=== PATIENT | male | born 1980 | race Caucasian/White ===

== ENCOUNTER 2021-06-10 17:46 | Inpatient (IN) ==
[2021-06-10] MEDS: 0.9 % Sodium Chloride 1,000 ML IVC SCH ×2 (18:58→21:37)
[2021-06-10 18:59] LABS: VBG HCO3 26 mEq/L (21-27); VBG PCO2 37 mmHg (41-51); VBG PH 7.45 pH Units (7.32-7.42); VBG PO2 146 mmHg (25-50)
[2021-06-10 19:01] LABS: Basophils # 0.1 K/mcL (0.0-0.2); Eosinophils # 0.1 K/mcL (0.0-0.6); Hematocrit 46.3 % (37.5-50.1); Hemoglobin 16.6 g/dL (12.9-16.9); Immature Granulocytes % 0.7 % (0-4); Lymphocytes # 1.7 K/mcL (0.6-4.6); Lymphocytes % 28.5 %; Mean Corpuscular HGB Conc 35.9 g/dL (31.6-35.5); Mean Corpuscular Hemoglobin 30.9 pg (28.0-33.3); Mean Corpuscular Volume 86.1 fL (83.0-100.0); Mean Platelet Volume 11.1 fL (9.4-12.4); Monocytes # 0.6 K/mcL (0.0-1.3); Monocytes % 9.7 %; Neutrophils # 3.4 K/mcL (1.6-8.9); Platelet Count 304 K/mcL (140-400); Red Blood Count 5.38 M/mcL (4.19-5.50); Red Cell Distribution Width 12.9 % (11.5-14.5); Segmented Neutrophils % 58.1 %; White Blood Count 5.9 K/mcL (4.3-11.1)
[2021-06-10 19:10] LABS: Alanine Aminotransferase 74 Units/L (7-52); Albumin 5.1 g/dL (3.5-5.7); Alkaline Phosphatase 63 Units/L (34-104); Aspartate Amino Transferase 34 Units/L (13-39); BUN/Creatinine Ratio 13 (6-26); Bilirubin,Total 1.1 mg/dL (0.3-1.0); Blood Urea Nitrogen 18 mg/dL (6-20); Carbon Dioxide 23 mEq/L (23-29); Chloride 92 mEq/L (98-107); Globulin 2.5 g/dL (2.4-3.5); Glucose 470 mg/dL (70-105); Magnesium 2.2 mg/dL (1.6-2.6); Osmolality,Calculated 295 (280-300); Potassium 3.9 mEq/L (3.5-5.1); Sodium 131 mEq/L (136-145); Total Protein 7.6 g/dL (6.4-8.9); Troponin I < 0.03 ng/mL (< 0.04); eGFR For African Americans > 60 (> 60); eGFR For Non-African Americans 55 (> 60)
[2021-06-10] MEDS ORDERED: cefTRIAXone 1,000 MG in 0.9 % Sodium Chloride 10 ML IVP ONE (19:34)
[2021-06-10 20:27] LABS: Influenza A PCR Negative (Negative); Influenza B PCR Negative (Negative); Resp. Syncytial Virus PCR Negative (Negative); SARS-CoV-2 by PCR (In House) Negative (Negative)
[2021-06-10 20:56] LABS: Bilirubin,Urine Negative (Negative); Blood,Urine Negative (Negative); Clarity,Urine Clear (Clear); Color,Urine Colorless (Yellow); Glucose,Urine (UA) >=1000 mg/dL (Normal); Ketones,Urine Negative (Negative); Leukocyte Esterase,Urine Negative (Negative); Nitrite,Urine Negative (Negative); Protein,Urine Trace mg/dL (Neg-Trace); RBC,Urine 0-3 per hpf (0-3); Specific Gravity,Urine > 1.030 (1.010-1.025); Urobilinogen,Urine Normal (Normal); WBC,Urine 0-3 per hpf (0-3)
[2021-06-10 20:57] LABS: Amphetamine Screen,Urine Negative ng/mL (Cutoff=1000); Barbiturate Screen,Urine Negative ng/mL (Cutoff=200); Benzodiazepines Screen,Urine Negative ng/mL (Cutoff=200); Cannabinoid Screen,Urine Negative ng/mL (Cutoff = 50); Cocaine Screen,Urine Negative ng/mL (Cutoff= 300); Opiate Screen,Urine Negative ng/mL (Cutoff=300); Phencyclidine Screen,Urine Negative ng/mL (Cutoff=25)
[2021-06-10] MEDS ORDERED: Azithromycin 500 MG in 0.9 % Sodium Chloride 250 ML IVPB ONE (21:17)
[2021-06-10] MEDS ORDERED: Naloxone 0.4 MG/ML INJ IVP PRN (21:46)
[2021-06-10] MEDS ORDERED: Ondansetron 4 MG/2 ML VIAL IVP PRN (21:46)
[2021-06-10] MEDS ORDERED: Acetaminophen 325 MG TABLET PO PRN (21:46)
[2021-06-10] MEDS ORDERED: Ipratropium/Albuterol Neb 3 ML IH PRN (21:48)
[2021-06-10 23:06] LABS: BUN/Creatinine Ratio 16 (6-26); Blood Urea Nitrogen 16 mg/dL (6-20); Calcium 10.2 mg/dL (8.6-10.3); Carbon Dioxide 23 mEq/L (23-29); Chloride 98 mEq/L (98-107); Glucose 250 mg/dL (70-105); Osmolality,Calculated 290 (280-300); Sodium 135 mEq/L (136-145); eGFR For African Americans > 60 (> 60); eGFR For Non-African Americans > 60 (> 60)
[2021-06-10] MEDS ORDERED: *HR* Dextrose 50 % in Water (Syg) 50 ML SYRINGE IVP PRN (23:38)
[2021-06-10] MEDS: D5% in 0.45% NACL w KCl 20 MEQ/1,000 ML MLS IVC PRN (23:48)
[2021-06-11] MEDS: tiZANidine 4 MG TABLET PO PRN ×2 (01:42→20:44)
[2021-06-11] MEDS: D5% in 0.45% NACL w KCl 20 MEQ/1,000 ML MLS IVC PRN ×2 (04:13→09:24)
[2021-06-11 04:41] LABS: Basophils # 0.1 K/mcL (0.0-0.2); Basophils % 0.9 %; Eosinophils # 0.2 K/mcL (0.0-0.6); Eosinophils % 2.7 %; Hematocrit 40.4 % (37.5-50.1); Hemoglobin 14.1 g/dL (12.9-16.9); Immature Granulocytes % 0.3 % (0-4); Lymphocytes # 2.3 K/mcL (0.6-4.6); Lymphocytes % 39.9 %; Mean Corpuscular HGB Conc 34.9 g/dL (31.6-35.5); Mean Corpuscular Hemoglobin 30.5 pg (28.0-33.3); Mean Corpuscular Volume 87.3 fL (83.0-100.0); Mean Platelet Volume 10.6 fL (9.4-12.4); Monocytes # 0.6 K/mcL (0.0-1.3); Monocytes % 10.8 %; Neutrophils # 2.6 K/mcL (1.6-8.9); Platelet Count 246 K/mcL (140-400); Red Blood Count 4.63 M/mcL (4.19-5.50); Red Cell Distribution Width 13.1 % (11.5-14.5); Segmented Neutrophils % 45.4 %; White Blood Count 5.8 K/mcL (4.3-11.1)
[2021-06-11 05:37] LABS: BUN/Creatinine Ratio 15 (6-26); Blood Urea Nitrogen 15 mg/dL (6-20); Calcium 9.1 mg/dL (8.6-10.3); Carbon Dioxide 24 mEq/L (23-29); Chloride 102 mEq/L (98-107); Chol/HDL Ratio 10.5 (0-4.9); Cholesterol 209 mg/dL (< 200); Glucose 105 mg/dL (70-105); HDL Cholesterol 20 mg/dL (40-59); Osmolality,Calculated 287 (280-300); Phosphorous 4.4 mg/dL (2.7-4.5); Sodium 138 mEq/L (136-145); Thyroid Stimulating Hormone 4.866 mcIU/mL (0.340-5.600); Triglycerides 1128 mg/dL (< 150); eGFR For African Americans > 60 (> 60); eGFR For Non-African Americans > 60 (> 60)
[2021-06-11] MEDS ORDERED: Insulin DETEMIR 100 UNIT/ML X5UNITS SUBQ ONE (06:23)
[2021-06-11 06:56] LABS: Lipase 49 Units/L (11-82)
[2021-06-11 07:32] LABS: Estimated Average Glucose 214 mg/dl; Hemoglobin A1C 9.1 %
[2021-06-11] MEDS: Gabapentin 300 MG CAPSULE PO SCH ×3 (07:52→22:00)
[2021-06-11] MEDS: FLUoxetine 20 MG CAPSULE PO SCH (07:52)
[2021-06-11] MEDS: cefTRIAXone 1,000 MG in 0.9 % Sodium Chloride Mini Bag 100 ML IVPB SCH (07:55)
[2021-06-11] MEDS: Azithromycin 500 MG in 0.9 % Sodium Chloride 250 ML IVPB SCH (07:56)
[2021-06-11] MEDS ORDERED: *HR* Enoxaparin 30 MG/0.3 ML SYRINGE SQ SCH (09:00)
[2021-06-11] MEDS: 0.9 % Sodium Chloride 1,000 ML IVC SCH ×2 (12:11→20:40)
[2021-06-11] MEDS: Insulin LISPRO 300 UNITS/3 ML VIAL SUBQ SCH ×3 (12:14→20:48)
[2021-06-12 02:27] LABS: BUN/Creatinine Ratio 18 (6-26); Blood Urea Nitrogen 16 mg/dL (6-20); Calcium 8.5 mg/dL (8.6-10.3); Carbon Dioxide 24 mEq/L (23-29); Chloride 103 mEq/L (98-107); Glucose 220 mg/dL (70-105); Osmolality,Calculated 288 (280-300); Potassium 3.6 mEq/L (3.5-5.1); Sodium 135 mEq/L (136-145); eGFR For African Americans > 60 (> 60); eGFR For Non-African Americans > 60 (> 60)
[2021-06-12] MEDS: 0.9 % Sodium Chloride 1,000 ML IVC SCH (06:56)
[2021-06-12] MEDS: Insulin LISPRO 300 UNITS/3 ML VIAL SUBQ SCH ×4 (07:45→20:31)
[2021-06-12] MEDS: cefTRIAXone 1,000 MG in 0.9 % Sodium Chloride Mini Bag 100 ML IVPB SCH (09:53)
[2021-06-12] MEDS: Azithromycin 500 MG in 0.9 % Sodium Chloride 250 ML IVPB SCH (09:55)
[2021-06-12] MEDS: *HR* Enoxaparin 40 MG/0.4 ML SYRINGE SQ SCH (09:57)
[2021-06-12] MEDS: FLUoxetine 20 MG CAPSULE PO SCH (09:57)
[2021-06-12] MEDS: Gabapentin 300 MG CAPSULE PO SCH ×3 (09:58→20:17)
[2021-06-12] MEDS ORDERED: D5% in Water 1,000 ML IVC PRN (12:21)
[2021-06-12] MEDS ORDERED: *HR* Dextrose 50 % in Water (Syg) 50 ML SYRINGE IVP PRN (12:21)
[2021-06-12] MEDS ORDERED: Dextrose Gel 15 GM/37.5 ML TUBE PO PRN ×2 (12:21)
[2021-06-12] MEDS ORDERED: Ibuprofen 400 MG TABLET PO PRN (16:15)
[2021-06-12] MEDS ORDERED: tiZANidine 4 MG TABLET PO PRN (20:38)
[2021-06-12] MEDS ORDERED: Insulin DETEMIR 100 UNIT/ML X5UNITS SUBQ SCH ×2 (21:00)
[2021-06-13 02:47] LABS: BUN/Creatinine Ratio 19 (6-26); Blood Urea Nitrogen 15 mg/dL (6-20); Calcium 8.6 mg/dL (8.6-10.3); Carbon Dioxide 22 mEq/L (23-29); Chloride 105 mEq/L (98-107); Glucose 234 mg/dL (70-105); Osmolality,Calculated 286 (280-300); Potassium 3.9 mEq/L (3.5-5.1); Sodium 134 mEq/L (136-145); eGFR For African Americans > 60 (> 60); eGFR For Non-African Americans > 60 (> 60)
[2021-06-13] MEDS: Insulin LISPRO 300 UNITS/3 ML VIAL SUBQ SCH ×2 (09:05→13:26)
[2021-06-13] MEDS: *HR* Enoxaparin 40 MG/0.4 ML SYRINGE SQ SCH (09:08)
[2021-06-13] MEDS: FLUoxetine 20 MG CAPSULE PO SCH (09:10)
[2021-06-13] MEDS: Gabapentin 300 MG CAPSULE PO SCH (09:10)
[2021-06-13 10:55] VITALS: O2SAT 94
[2021-06-13 14:50] VITALS: BP 152/98; PULSE 92; TEMP 98.5
== END 2021-06-13 15:40 | disposition home or self-care (01) | DRG 638 ==
LOC: 2NNU 17:46 → EMEROOARM 17:46 → 2NNU 23:06
PROVIDERS: ADMIT Student in an Organized Health Care Education/Training Program; ATTEND Student in an Organized Health Care Education/Training Program